=== PATIENT | male | born 1940 | race Caucasian/White ===

== ENCOUNTER → 2016-11-26 | Outpatient (CLI) | payer OTHER ==
[~2016-11-26] MED LIST: BUDE10.2 IH; GADOBUTROL 7.5 MMOL/7.5 ML VIAL IV ONE; PROAIR HFA8.5 GM INH; TAMS0.4C97 PO; TIOT18CA IH
--- NOTE | 2016-11-26 10:17 | KCIC ---
MRI Brain with and without contrast History: Benign neoplasm of brain, increasing difficulty swallowing, history of radiation for tumor Technique: Multiplanar, multi sequential pre and postcontrast MR imaging was performed of the brain. 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 There is also extent into the right neck, most inferior aspect of the mass not included on the axial images. Largest component of the mass with intracranial extent is estimated at 2.8 cm transverse by 2.9 cm CC by 2.4 cm AP. Extracranial component of the mass is much larger on the order of at least 4.8 cm transverse by 2.3 cm AP by at least 7.5 cm cc. Mass in the right neck displaces the right internal carotid artery anteriorly and medially. Intracranial mass compresses upon the right middle cerebellar peduncle, no edema or gliosis. No other intracranial enhancing mass is identified. There is no midline shift or extra-axial fluid collection. Ventricular size is within normal limits. There is no evidence of recent infarct. Cerebral volume is considered within normal limits. There is preservation of the major arterial intracranial flow voids at the skull base. There has been lens surgery bilaterally. There is left maxillary sinus mucous retention cyst 1.9 cm transverse. There is mild patchy fluid of the left mastoid air cells, also minimally on the right inferiorly. Some protuberance along the left frontal calvarium and scalp near the anterior left vertex is not associated with convincing enhancement or other signal change. Impression: 1. 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 There is also a very large extracranial mass in the right neck which is not fully included. Electronically signed by: Luis Eduardo Bucio MD (11/26/2016 10:14 AM) [id number]
== END | disposition home or self-care (01) ==
LOC: KCIC MRI 08:15
PROVIDERS: ATTEND Internal Medicine Hematology & Oncology
DX: D33.2 Benign neoplasm of brain, unspecified (principal); R13.10 Dysphagia, unspecified; Z92.3 Personal history of irradiation
CPT/HCPCS: 70553; 82565; A9585